=== PATIENT | male | born 1955 | race Caucasian/White ===

== ENCOUNTER 2016-12-03 07:15 | Day surgery (SDC) | payer OTHER ==
--- NOTE | 2016-11-19 15:50 | HISTORY AND PHYSICAL E ---
History and Physical NAME: NOE LOPEZ : 1955 AGE: 61Y ADMITTED: 12/03/2016 ROOM: CHIEF COMPLAINT: Patient admitted for colon exam, history of polyps. REFERRING: MASSIEL Vaughn. HISTORY OF PRESENT ILLNESS: Saw the patient when he was 52 for colon screening. I saw the patient in 2007, at that time Dr. Oneill. Colonoscopy showed hyperplastic polyp rectum. Colonoscopy back in 2007 showed polyp and diverticulosis. Another colonoscopy was done in 2015 showing polyps. The patient presented at this time referred to us regarding colon exam. The patient did have colonoscopy 2015. The patient takes metformin for diabetes. Prep was inadequate. Benign-looking polyps. He does have diminutive polyp at the rectosigmoid/transverse colon. One of the transverse colon polyps came back adenoma. The rectal polyp: No adenoma. PAST MEDICAL HISTORY: 1. He does have history of type-2 diabetes. 2. Arrhythmias. MEDICATIONS: Metformin. ALLERGIES: The patient is allergic to tetanus. FAMILY HISTORY: His father has history of heart disease. His mom had history of liver disease. SOCIAL HISTORY: Does not smoke, rarely or does not drink. PHYSICAL EXAMINATION: VITAL SIGNS: Blood pressure 120/70, pulse 80, respirations 18, temperature is 98. HEAD, EYES, EARS, NOSE, THROAT: Normal. NECK: Supple. LUNGS: Clear. ABDOMEN: Soft. NEUROLOGIC: Negative. CONCLUSION: 1. Diabetes. 2. History of adenoma polyp transverse colon. PLAN: Colonoscopy and planned colon exam. DICTATING PHYSICIAN: MICHELLE DC M.D. [id number] Y#: [id number] ID: [id number] JOB#: [id number] ACCT: [id number] cc:Mitchell LINDA M.D. >
[2016-12-03] MEDS ORDERED: ONDANSETRON HCL INJ/PF 4 MG/2 ML SDV ONE (07:29)
[2016-12-03] MEDS ORDERED: LIDOCAINE 2% JELLY 30 ML TUBE ONE (07:29)
[2016-12-03] MEDS ORDERED: NALOXONE HCL INJ/PF 0.4 MG/1 ML SDV ONE (07:30)
[2016-12-03] MEDS ORDERED: GLYCOPYRROLATE INJ 0.4 MG/2 ML VIAL ONE (07:30)
[2016-12-03] MEDS ORDERED: MIDAZOLAM 2 MG/2 ML INJ ONE (07:30)
[2016-12-03] MEDS ORDERED: EPINEPHRINE INJ 1 MG/10 ML DISP.SYRIN ONE (07:31)
[2016-12-03] MEDS ORDERED: GLUCAGON,HUMAN RECOMB 1 MG INJ ONE (07:31)
[2016-12-03] MEDS ORDERED: FLUMAZENIL INJ 0.5 MG/5 ML VIAL IV ONE (07:31)
[2016-12-03] MEDS: FENTANYL CITRATE INJ/PF 100 MCG/2 ML AMPUL ONE ×4 (08:05→08:13)
[2016-12-03 09:30] LABS: ABSOLUTE EOSINOPHILS # (AUTO) 0.2 10^3/uL (0.0-0.6); ABSOLUTE LYMPHOCYTES (AUTO) 1.4 10^3/uL (0.5-4.7); ABSOLUTE MONOCYTES (AUTO) 0.5 10^3/uL (0.1-1.4); ABSOLUTE NEUT (AUTO) 4.9 10^3/uL (1.7-8.2); BASOPHILS % (AUTO) 0.6 % (0-2); EOSINOPHILS % (AUTO) 2.3 % (0-6); HEMATOCRIT 36.9 % (37.9-51.0); HEMOGLOBIN 12.7 g/dL (13.5-17.0); HGB HCT DIFFERENCE 1.2; LYMPHOCYTES % (AUTO) 20.2 % (13-45); MEAN CORPUSCULAR HEMOGLOBIN 29.6 pg (27.0-33.4); MEAN CORPUSCULAR HGB CONC 34.3 g/dL (32.0-36.0); MEAN CORPUSCULAR VOLUME 86 fl (80-97); MONOCYTES % (AUTO) 6.9 % (3-13); RED BLOOD COUNT 4.28 10^6/uL (4.35-5.55); RED CELL DISTRIBUTION WIDTH 13.3 % (11.5-14.0)
[2016-12-03 09:50] VITALS: BP 108/57
--- NOTE | 2016-12-03 13:24 | OPERATIVE REPORT E ---
Operative Report NAME: NOE LOPEZ : 1955 AGE: 61Y DATE OF SURGERY: 12/03/2016 ROOM: PREOPERATIVE DIAGNOSES: 1. Colon screening. 2. Remote history of polyps. POSTOPERATIVE DIAGNOSES: 1. Diverticulosis, mild. 2. Nonspecific colitis, sigmoid colon. 3. Diminutive rectal polyps. PROCEDURE: Colonoscopy. SURGEON: MICHELLE DC M.D. ANESTHESIA: Versed 2 mg and Fentanyl 100 mcg. TISSUE REMOVED OR ALTERED: Biopsy, rectal polyp. DESCRIPTION OF PROCEDURE: Rectal exam shows mild external hemorrhoids most likely secondary to prep. Rectum diminutive polyps, biopsy obtained. Sigmoid diverticulosis, mild. Occasional erythema in the sigmoid and descending colon. Transverse colon normal. Ascending colon normal. Cecum normal. There was a moderate amount of full liquid stool scattered around the colon. Prep was okay but not optimal. CONCLUSIONS: 1. Diminutive rectal polyps. 2. Sigmoid diverticulosis. 3. Mild colitis. PLAN: 1. Soft low-residue diet for 2 days. 2. Hold aspirin for 3 days. 3. Awaiting biopsy results. 4. Consideration of follow-up colonoscopy in 2-3 years pending biopsy results. DICTATING PHYSICIAN: MICHELLE DC M.D. [id number] PHY#: [id number] ID: [id number] JOB#: [id number] ACCT: [id number] cc:MEGHA RAINES M.D. MICHELLE DC M.D. >
--- NOTE | 2016-12-03 13:25 | DISCHARGE SUMMARY E ---
Discharge Summary NAME: NOE LOPEZ : 1955 AGE: 61Y ADMITTED: 12/03/2016 DISCHARGED: 12/03/2016 PROCEDURE: Colonoscopy, biopsy. HISTORY: Patient is 61, underwent colon screening. Patient does have history of diabetes, arrhythmias. Today's colonoscopy shows no malignancy, benign-looking diminutive polyps rectosigmoid, sigmoid diverticulosis, and occasional diverticulosis. DISCHARGE PLAN: Soft, low-residue diet. Hold aspirin 3 days. Awaiting biopsy results. Consideration followup colonoscopy 2 years. DICTATING PHYSICIAN: MICHELLE DC M.D. [id number] PHY#: [id number] ID: [id number] JOB#: [id number] ACCT: [id number] cc:Mitchell LINDA M.D. >
== END 2016-12-03 09:30 | disposition home or self-care (01) ==
LOC: END 07:15
PROVIDERS: ATTEND Specialist
PROC: 0DBP8ZX Excision of Rectum, Via Natural or Artificial Opening Endoscopic, Diagnostic (ICD-10-PCS; principal; 2016-12-03 08:00)
DX: Z12.11 Encounter for screening for malignant neoplasm of colon (principal); K63.5 Polyp of colon; K57.30 Diverticulosis of large intestine without perforation or abscess without bleeding; E11.9 Type 2 diabetes mellitus without complications; Z88.7 Allergy status to serum and vaccine; K64.4 Residual hemorrhoidal skin tags; I49.9 Cardiac arrhythmia, unspecified; Z79.84 Long term (current) use of oral hypoglycemic drugs
CPT/HCPCS: 45380; 36415; 82962; 82378; 85025; 88305 ×2; J2250; J3010; J1610; J2405; J0171; J2310; J3490